=== PATIENT | female | born 1970 | race Caucasian/White ===

== ENCOUNTER 2019-05-16 10:26 | Emergency (ER) | payer OTHER ==
[2019-05-16] MEDS ORDERED: Bacitracin Oint 1 GM U/D Packet TOP ONE (10:55)
--- NOTE | 2019-05-16 11:38 | EDM.PDOC ---
ED HPI GENERAL MEDICAL PROBLEM - General Chief Complaint: Laceration Stated Complaint: RIGHT HAND FINGER INJURED WHILE USING A KNIVE Time Seen by Provider: 05/16/19 10:51 Source of Information: Reports: Patient, RN Notes Reviewed History Limitations: Reports: No Limitations - History of Present Illness INITIAL COMMENTS - FREE TEXT/NARRATIVE: 48-year-old female presents emergency department today with a laceration to the palmar surface of digit #2 on her right hand she injured herself with a hunting knife no functional complaints - Related Data Allergies Allergy/AdvReac Type Severity Reaction Status Date / Time No Known Allergies Allergy Verified 05/16/19 10:44 Home Meds: Home Meds Aspirin 325 mg PO ASDIRECTED 05/16/19 [History] Loratadine [Claritin] 10 mg PO DAILY 05/16/19 [History] hydroCHLOROthiazide [Hydrochlorothiazide] 12.5 mg PO DAILY 05/16/19 [History] Past Medical History Cardiovascular History: Reports: Hypertension [employer] History: Reports: - Infectious Disease History Infectious Disease History: Reports: Chicken Pox - Past Surgical History HEENT Surgical History: Reports: Tonsillectomy Female Surgical History: Reports: Tubal Ligation Social & Family History - Tobacco Use Smoking Status *Q: Never Smoker - Caffeine Use Caffeine Use: Reports: Coffee - Recreational Drug Use Recreational Drug Use: No ED ROS GENERAL - Review of Systems Review Of Systems: See Below Skin: Reports: Wound ED EXAM, SKIN/RASH Exam: See Below Text/Narrative:: Digit #2 right hand 2.5 cm laceration completely through the dermis into the subcutaneous tissue palmar surface in between the MCP and PIP joint. Pedal pulses +2 full range of motion of all digits sensation is intact Exam Limited By: No Limitations General Appearance: Alert, WD/WN, No Apparent Distress Course - Vital Signs Last Recorded V/S: Last Vital Signs Temp 96 F 05/16/19 10:46 Pulse 74 05/16/19 10:46 Resp 16 05/16/19 10:46 BP 148/94 H 05/16/19 10:46 Pulse Ox 99 05/16/19 10:46 - Orders/Labs/Meds Meds: Medications Discontinued Medications Generic Name Dose Route Start Last Admin Trade Name Freq PRN Reason Stop Dose Admin Bacitracin 1 dose 05/16/19 10:55 05/16/19 10:58 Bacitracin Oint 1 Gm TOP 05/16/19 10:56 1 dose ONETIME ONE Administration Lidocaine HCl 5 ml 05/16/19 10:55 05/16/19 10:58 Xylocaine-Mpf 1% INJECT 05/16/19 10:56 5 ml ONETIME ONE Administration Departure - Departure Time of Disposition: 11:36 Disposition: Home, Self-Care 01 Condition: Good Clinical Impression: Laceration of finger, right Qualifiers: Encounter type: initial encounter Finger: index finger Damage to nail status: without damage Foreign body presence: without foreign body Qualified Code(s): S61.210A - Laceration without foreign body of right index finger without damage to nail, initial encounter - Discharge Information Instructions: Wound Care, Adult, Laceration Care, Adult Referrals: PCP,None [Primary Care Provider] - Additional Instructions: Follow wound care instruction sheet, suture removal in 10 days, return to the emergency department or follow-up with primary care for suture removal - Assessment/Plan Plan: Assessment Acuity = acute Site and laterality = 2.5 cm laceration palmar surface digit #2 right hand Etiology = knife trauma Manifestations = none Location of injury = Home Lab values = none Plan Suture removal in 10 days, follow wound care instruction sheet, follow-up primary care return to the emergency department worsening of symptoms This note was dictated using [email or web address] voice recognition software please call with any questions on syntax or grammar.
== END 2019-05-16 11:48 | disposition home or self-care (01) ==
LOC: JP.ED 10:26
DX: S61.210A Laceration without foreign body of right index finger without damage to nail, initial encounter (principal); I10 Essential (primary) hypertension; Z79.82 Long term (current) use of aspirin; Z79.899 Other long term (current) drug therapy; W26.0XXA Contact with knife, initial encounter; Y93.89 Activity, other specified
CPT/HCPCS: 12001; 99282; J2001